=== PATIENT | male | born 1985 | race Caucasian/White ===

== ENCOUNTER 2019-10-25 19:08 | Emergency (ER) | payer SELFPAY ==
[2019-10-25] MEDS ORDERED: ACETAMINOPHEN 325 MG TABLET (FP) PO ONE (19:11)
--- NOTE | 2019-10-25 19:11 | PDOC ---
Rapid Medical Evaluation Chief Complaint: Cold Symptoms Time Seen by Provider: 10/25/19 19:10 Medical Evaluation: 10/25/19 19:10 I performed a brief in-person evaluation of this patient. 34-year-old male with NIDDM with fever since yesterday. No cough, CP, or SOB. Pertinent physical exam findings: T 100.6 orally HR 122 SpO2 95% Clear lungs No resp distress; speaking full sentences Dispo: Tylenol Home Isolation precautions and ED return indications reviewed Discharge Disposition - Diagnosis Fever - Discharge Dispostion Disposition: HOME Condition at time of disposition: Stable Decision to Admit order: No - Referrals - Patient Instructions Printed Discharge Instructions: [facility]-Coronavirus Instructions, [facility] COVID-19 Isolation Protocol Additional Instructions: Follow isolation precautions attached A safe and effective care environment is our highest priority, and [facility] ([facility] practices have undertaken necessary steps to protect our patients and workforce as the novel coronavirus (COVID-19) situation evolves. [facility] COVID-19 Drive-Thru Site Now Open to the Public - BY APPOINTMENT ONLY How to make an appointment? Please call [phone] from 8:30 a.m. - 6 p.m. You will receive a screening, and if appropriate, youll be given an appointment. We will need your phone number and address, and your primary care physician information. What should I bring? When you come, you need your photo identification. When will I receive my results? At this time, results can take up to five days. Return here for difficulty breathing or any other life-threatening symptoms Print Language: GREENLAND[place] - Post Discharge Activity
[2019-10-25 19:16] VITALS: BP 129/104; PULSE 123; TEMP 100.6
== END 2019-10-25 19:19 | disposition home or self-care (01) ==
LOC: JER 19:08
DX: R50.9 Fever, unspecified (principal)
CPT/HCPCS: 99282-25